=== PATIENT | female | born 1950 ===

== ENCOUNTER 2017-08-02 06:48 | Inpatient (IN) | payer OTHER, MEDICARE ==
[2017-08-02] MEDS ORDERED: ceFAZolin 2 GM in Premix Bag 1 BAG IV ONE (07:07)
[2017-08-02] MEDS ORDERED: fentaNYL 100 MCG/2 ML SDV ONE (07:29)
[2017-08-02] MEDS ORDERED: Propofol 200 MG/20 ML SDV ONE (07:29)
[2017-08-02] MEDS ORDERED: Midazolam 1 MG/ML 2 ML SDV ONE (07:29)
[2017-08-02] MEDS ORDERED: Lactated Ringers 1,000 ML IV SCH (07:30)
--- NOTE | 2017-08-02 07:58 | PCM.PREANE ---
Preanesthetic Assessment - Anesthesia/Transfusion/Family Hx Anesthesia History: No Prior Anesthesia Transfusion History: No Prior Transfusion(s) - Physical Assessment NPO Status Date: 08/01/17 NPO Status Time: 23:00 O2 Sat by Pulse Oximetry: 97 Respiratory Rate: 16 Vital Signs: Last Vital Signs Temp 98.2 F 08/02/17 07:38 Pulse 86 08/02/17 07:38 Resp 16 08/02/17 07:38 BP 166/77 H 08/02/17 07:38 Pulse Ox 97 08/02/17 07:38 Height: 5 ft 6 in Weight: 190 lb - Allergies Allergies/Adverse Reactions: Allergies Allergy/AdvReac Type Severity Reaction Status Date / Time No Known Allergies Allergy Verified 07/29/17 08:21 PreAnesthesia Questionnaire - Past Health History Medical/Surgical History: Denies Medical/Surgical History Cardiovascular History: Reports: Hypertension - Past Surgical History Head Surgeries/Procedures: Reports: None - SUBSTANCE USE Smoking Status *Q: Never Smoker Recreational Drug Use History: No - HOME MEDS Home Medications: Home Meds Acetaminophen [Tylenol] 2 tab PO ASDIRECTED PRN 07/29/17 [History] Hydrochlorothiazide 25 mg PO DAILY 07/29/17 [History] Losartan [Cozaar] 100 mg PO DAILY 07/29/17 [History] Lutein/Minerals/Vit A,C & E [Ocuvite] 1 tab PO DAILY 07/29/17 [History] Multivitamin [Multivitamins] 1 tab PO DAILY 07/29/17 [History] [place]-3/DHA/Epa/Fish Oil [[place] 3 500 Softgel] 1 tab PO DAILY 07/29/17 [History] - CURRENT (IN HOUSE) MEDS Current Meds: Current Medications Cefazolin Sodium/Dextrose 2 gm (/ Premix) 50 mls @ 50 mls/hr IV ONETIME ONE Stop: 08/02/17 08:06 Lactated Ringer's (Ringers, Lactated) 1,000 mls @ 125 mls/hr IV ASDIRECTED LOCO Last Admin: 08/02/17 07:25 Dose: 125 mls/hr Tranexamic Acid (Cyklokapron) 2,000 mg IV ONETIME ONE Stop: 08/02/17 08:01 Discontinued Medications Fentanyl (Sublimaze) Confirm Administered Dose 100 mcg .ROUTE .STK-MED ONE Stop: 08/02/17 07:30 Midazolam HCl (Versed 1 Mg/Ml) Confirm Administered Dose 2 mg .ROUTE .STK-MED ONE Stop: 08/02/17 07:30 Propofol (Diprivan 20 Ml) Confirm Administered Dose 800 mg .ROUTE .STK-MED ONE Stop: 08/02/17 07:30 Tranexamic Acid (Cyklokapron) Confirm Administered Dose 2,000 mg .ROUTE .STK- MED ONE Stop: 08/02/17 07:31
[2017-08-02] MEDS ORDERED: Phenylephrine 1% 10 MG/ML SDV ONE (09:01)
[2017-08-02] MEDS ORDERED: Ondansetron 4 MG/2 ML SDV ONE (09:44)
--- NOTE | 2017-08-02 09:58 | PCM.OPNOTE ---
- General Post-Op/Procedure Note Date of Surgery/Procedure: 08/02/17 Operative Procedure(s): left anterior total hip arthroplasty Findings: severe OA Pre Op Diagnosis: left hip osteoarthritis Post-Op Diagnosis: same Anesthesia Technique: General ET Tube, Spinal Primary Surgeon: Rajan Cuevas Mai Pathology: femoral head EBL in mLs: 400 Complications: none Condition: Good Free Text/Narrative:: Intake & Output 08/01/17 08/02/17 08/02/17 22:59 06:59 14:59 Output Total 300 Balance -300
[2017-08-02] MEDS ORDERED: Acetaminophen/HYDROcodone 325-5 MG Tab ONE (10:06)
[2017-08-02] MEDS ORDERED: Docusate Sodium 100 MG Cap PO PRN (10:06)
[2017-08-02] MEDS ORDERED: Ondansetron 4 MG/2 ML SDV IVPUSH PRN (10:06)
--- NOTE | 2017-08-02 10:32 | PCM.POSTAN ---
POST ANESTHESIA ASSESSMENT - MENTAL STATUS Mental Status: Alert, Oriented - RESPIRATORY Respiratory Status: Respiratory Rate WNL, Airway Patent, O2 Saturation Stable - CARDIOVASCULAR CV Status: Pulse Rate WNL, Blood Pressure Stable - GASTROINTESTINAL GI Status: No Symptoms - PAIN Pain Score: 0 (spinal effect still present) - POST OP HYDRATION Hydration Status: Adequate & Stable
[2017-08-02] MEDS: ceFAZolin 2 GM in Premix Bag 1 BAG IV SCH ×2 (11:04→17:15)
[2017-08-02] MEDS: Morphine 10 MG/ML Syringe IVPUSH PRN ×3 (11:28→16:55)
--- NOTE | 2017-08-02 13:59 | OR ---
SURGEON: Rajan Jarrell MD DATE OF PROCEDURE: 08/02/2017 PREOPERATIVE DIAGNOSIS: Left hip osteoarthritis. POSTOPERATIVE DIAGNOSIS: Left hip osteoarthritis. OPERATION PERFORMED: Left anterior total hip arthroplasty. ANESTHESIA: Spinal and general. ESTIMATED BLOOD LOSS: 400 mL. SPECIMENS: Femoral head. COMPLICATIONS: None. IMPLANTS: Prem Continuum trabecular metal shell with cluster holes, 54 mm outer diameter, one 6.5 x 30 mm length bone screw, Vivacit-E neutral liner, 36 mm inner diameter, M/L Taper press-fit hip stem, extended offset reduced neck length, size 12.5, Biolox delta ceramic femoral head 36 mm diameter, zero neck length. INDICATIONS: The patient is a 67-year-old female with severe hip osteoarthritis. She wished to undergo hip replacement. She understands the risks, benefits, alternatives, and complications of the procedure including, but not limited to infection, neurovascular injury, continued pain, DVT, PE, stroke, [place], , leg-length discrepancy, fracture, dislocation, and she wished to proceed. PROCEDURE IN DETAIL: The patient was seen in the preoperative area. Operative site was marked. The patient was transferred to the operating room, where spinal anesthetic was given. She was placed supine on the Rader table. Her legs were placed in leg bars with narrow perineal post. General anesthesia was induced. Endotracheal tube was placed. She received preop antibiotics with Ancef and also 2 g TXA. Left hip was prepped and draped in a sterile fashion using alcohol followed by ChloraPrep with Ioban covering. A formal time-out was taken, identifying the correct patient, procedure, and extremity. A 12 cm incision starting just lateral to the ASIS going obliquely down to the femur was made. Dissection was carried out down to subcutaneous tissues. Hemostasis was obtained. The fascia overlying the TFL was opened and the interval between the TFL and sartorius due to the abductors and rectus was opened. A deep Scotty tractor was placed. The vastus lateralis fascia was opened and the anterior vessels were coagulated. The capsule was held and tagged with 2 fiber wires and retractors were placed deep in the hip joint. There were severe arthritis and loss of synovitis. The neck was cut in saddle region 1 cm above the lesser trochanter and the head was removed. The patient had severe complete osteoarthritis with complete obliteration and osteophytes as well as severe synovitis. Anterior and posterior tractors were released. Superior capsule was opened up to the acetabulum. The inferior capsule was released and portions of the iliopsoas tendon were released due to the severe tightness. The labrum was removed as well as pulvinar and then sequential reaming from size 47 up to 53 was made. The head measured about 48 to 49 mm. This was under fluoroscopic control going slightly superior medially to get good press fit due to the erosion of the lateral acetabulum. This had excellent fit and then the continuum trabecular metal shell with cluster holes was impacted in 10 degrees of anteversion and 40 degrees of abduction. This had excellent press fit. Due to some overhang laterally once straight superior bone screw was placed after drilling which had excellent fit. The wound was irrigated, dried off, and the neutral liner was impacted. Leg was then externally rotated. The medial capsule was released. Femoral lift was placed. Leg was extended and adducted. Central canal finder was utilized after releasing the superior capsule obturator internus and piriformis and then sequential broaching from size 4 following the [place] version up to a size 12.5 was made. This trial reduced with extended offset reduced neck length with a zero head which showed equal leg length and offset compared to the opposite side. This was done with printed overlay technique with fluoro films. The hip was then dislocated. The final 12.5, extended offset, reduced neck length M/L Taper stem was impacted after removing the trial components and irrigated. It was once again trialed with a zero neck length in printed overlay technique, showed equal leg length and offset. The hip was then dislocated. The Reyes taper was dried off and the final Biolox delta ceramic femoral head 36 mm diameter, zero neck length was impacted. The hip reduced. Two tag sutures were tied together. Wound was thoroughly irrigated. The fascia was closed with #1 Vicryl, the fat layer with #1 Vicryl. Subcutaneous tissues with 2-0 Stratafix, and the skin was closed with running 4-0 Monocryl. Dermabond tape and Aquacel dressing were placed. The patient was extubated to the operative room and transferred to recovery room in condition. Sponge, and needle counts were correct at the end of the case. There were no complications. PLAN: The patient will be allowed weightbearing as tolerated with aspirin for DVT prophylaxis. WILFREDO CONROY /[id number]
[2017-08-02] MEDS: Lactated Ringers 1,000 ML IV SCH (14:17)
--- NOTE | 2017-08-02 14:54 | CR ---
EXAMINATION: Left hip HISTORY: Arthroplasty COMPARISON: None TECHNIQUE: 2 views FINDINGS/IMPRESSION: Operative control films demonstrate left hip hardware in good position and align ment.
[2017-08-02] MEDS: Acetaminophen/HYDROcodone 325-7.5 MG Tab PO PRN (19:59)
[2017-08-02] MEDS: Aspirin 325 MG Tab.EC PO SCH (20:00)
[2017-08-03] MEDS: Lactated Ringers 1,000 ML IV SCH (00:59)
[2017-08-03] MEDS: Acetaminophen/HYDROcodone 325-7.5 MG Tab PO PRN ×2 (02:31→09:32)
[2017-08-03] MEDS: ceFAZolin 2 GM in Premix Bag 1 BAG IV SCH (02:33)
[2017-08-03] MEDS ORDERED: Sodium Chloride 0.9% 10 ML Syringe FLUSH PRN (06:51)
[2017-08-03] MEDS ORDERED: Sodium Chloride 0.9% 2.5 ML Syringe FLUSH PRN (06:51)
--- NOTE | 2017-08-03 07:13 | PCM.SN ---
- Free Text/Narrative Note: S: Doing well. Has ambulated multiple times, independent to bathroom. pain controlled with oral meds. tolerating PO, no CP/SOB O: afebrile vital signs stable dressing clean/dry/intact. normal motor and sensation distal with palpable pedal pulse minimal swelling in thigh, none distal hgb 8.8 A/P: POD #1 left MYRNA with acute blood loss anemia - full weight bearing, PT - oral pain meds - aspirin for DVT prophylaxis, SCDs in hospital - likely to home today
--- NOTE | 2017-08-03 07:15 | PCM.DCSUM1 ---
Discharge Summary - Discharge Data Discharge Date: 08/03/17 Discharge Disposition: Home, Self-Care 01 Condition: Good - Patient Summary/Data Operative Procedure(s) Performed: left anterior total hip arthroplasty Consults: Consultations 08/02/17 10:05 Consult to Case Management [CONS] Routine PT Evaluation and Treatment [CONS] Routine Hospital Course: patient was admitted for planned hip replacement. She did well, but had acute blood loss anemia. discharge POD #1 to home on aspirin for DVT prophylaxis - Patient Instructions Diet: Usual Diet as Tolerated Activity: Apply Ice, Full Weight Bearing Driving: Do Not Drive Showering/Bathing: May Shower Wound/Incision Care: Do NOT Change Dressing Notify Provider of: Fever, Swelling and Redness, Drainage - Discharge Plan Home Medications: Home Meds Acetaminophen [Tylenol] 2 tab PO ASDIRECTED PRN 07/29/17 [History] Hydrochlorothiazide 25 mg PO DAILY 07/29/17 [History] Losartan [Cozaar] 100 mg PO DAILY 07/29/17 [History] Lutein/Minerals/Vit A,C & E [Ocuvite] 1 tab PO DAILY 07/29/17 [History] Multivitamin [Multivitamins] 1 tab PO DAILY 07/29/17 [History] [place]-3/DHA/Epa/Fish Oil [[place] 3 500 Softgel] 1 tab PO DAILY 07/29/17 [History] - Discharge Summary/Plan Comment DC Time >30 min.: No - Patient Data Vitals - Most Recent: Last Vital Signs Temp 37.1 C 08/03/17 04:00 Pulse 98 08/03/17 04:00 Resp 12 08/03/17 04:00 BP 104/57 L 08/03/17 04:00 Pulse Ox 93 L 08/03/17 04:00 Weight - Most Recent: 86.183 kg I&O - Last 24 hours: Intake & Output 08/02/17 08/03/17 08/03/17 22:59 06:59 14:59 Intake Total 390 1499 Output Total 1100 600 Balance -710 899 Lab Results - Last 24 hrs: Laboratory Results - last 24 hr 08/02/17 08/03/17 Range/Units 07:30 04:26 WBC 7.96 (4.0-11.0) K/uL RBC 3.04 L (4.30-5.90) M/uL Hgb 8.8 L (12.0-16.0) g/dL Hct 26.4 L (36.0-46.0) % MCV 86.8 (80.0-98.0) fL MCH 28.9 (27.0-32.0) pg MCHC 33.3 (31.0-37.0) g/dL RDW Std Deviation 50.1 (28.0-62.0) fl RDW Coeff of Efrem 16 H (11.0-15.0) % Plt Count 274 (150-400) K/uL MPV 8.60 (7.40-12.00) fL Nucleated RBC % 0.0 /100WBC Nucleated RBCs # 0 K/uL Blood Type O POSITIVE Antibody Screen POSITIVE Prewarmed Antibody Srcn NEGATIVE Antibody Identification Cancelled Cold Antibody Screen POSITIVE Med Orders - Current: Current Medications Hydrocodone Bitart/Acetaminophen ([place] 325-7.5 Mg) 1 - 2 tab PO Q4H PRN PRN Reason: Pain Last Admin: 08/03/17 02:31 Dose: 2 tab Aspirin (Ecotrin) 325 mg PO BID [facility] Last Admin: 08/02/17 20:00 Dose: 325 mg Docusate Sodium (Colace) 100 mg PO BID PRN PRN Reason: Constipation Hydrochlorothiazide (Hydrochlorothiazide) 25 mg PO DAILY [facility] Lactated Ringer's (Ringers, Lactated) 1,000 mls @ 125 mls/hr IV ASDIRECTED [facility] Last Admin: 08/02/17 07:25 Dose: 125 mls/hr Lactated Ringer's (Ringers, Lactated) 1,000 mls @ 100 mls/hr IV ASDIRECTED [facility] Last Admin: 08/03/17 00:59 Dose: 100 mls/hr Morphine Sulfate (Morphine) 1 - 5 mg IVPUSH Q2H PRN PRN Reason: Pain Last Admin: 08/02/17 16:55 Dose: 5 mg Ondansetron HCl (Zofran) 4 mg IVPUSH Q6H PRN PRN Reason: Nausea/Vomiting Sodium Chloride (Saline Flush) 10 ml FLUSH ASDIRECTED PRN PRN Reason: Keep Vein Open Sodium Chloride (Saline Flush) 2.5 ml FLUSH ASDIRECTED PRN PRN Reason: Keep Vein Open Discontinued Medications Hydrocodone Bitart/Acetaminophen ([place] 325-5 Mg) 1 - 2 tab .ROUTE .STK-MED ONE Stop: 08/02/17 10:07 Fentanyl (Sublimaze) Confirm Administered Dose 100 mcg .ROUTE .STK-MED ONE Stop: 08/02/17 07:30 Cefazolin Sodium/Dextrose 2 gm (/ Premix) 50 mls @ 50 mls/hr IV ONETIME ONE Stop: 08/02/17 08:06 Last Admin: 08/02/17 11:57 Dose: Not Given Cefazolin Sodium/Dextrose 2 gm (/ Premix) 50 mls @ 100 mls/hr IV Q8H LOCO Stop: 08/03/17 02:44 Last Admin: 08/03/17 02:33 Dose: 100 mls/hr Midazolam HCl (Versed 1 Mg/Ml) Confirm Administered Dose 2 mg .ROUTE .STK-MED ONE Stop: 08/02/17 07:30 Ondansetron HCl (Zofran) Confirm Administered Dose 4 mg .ROUTE .STK-MED ONE Stop: 08/02/17 09:45 Phenylephrine HCl ([place]-Synephrine) Confirm Administered Dose 10 mg .ROUTE .STK- MED ONE Stop: 08/02/17 09:02 Propofol (Diprivan 20 Ml) Confirm Administered Dose 800 mg .ROUTE .STK-MED ONE Stop: 08/02/17 07:30 Tranexamic Acid (Cyklokapron) 2,000 mg IV ONETIME ONE Stop: 08/02/17 08:01 Last Admin: 08/02/17 11:57 Dose: Not Given Tranexamic Acid (Cyklokapron) Confirm Administered Dose 2,000 mg .ROUTE .STK- MED ONE Stop: 08/02/17 07:31 *Q Meaningful Use (DIS) - VTE *Q VTE Criteria *Q: - Stroke *Q Stroke Criteria *Q: - AMI *Q AMI Criteria *Q:
[2017-08-03 08:45] VITALS: BP 101/56
[2017-08-03] MEDS: Aspirin 325 MG Tab.EC PO SCH (09:33)
[2017-08-04] MEDS ORDERED: Hydrochlorothiazide 25 MG Tab PO SCH (09:00)
== END 2017-08-03 11:00 | disposition home or self-care (01) | DRG 470 ==
LOC: MW.MS 06:48
PROVIDERS: ADMIT Orthopaedic Surgery; ATTEND Orthopaedic Surgery
PROC: 0SRB0JZ Replacement of Left Hip Joint with Synthetic Substitute, Open Approach (ICD-10-PCS; principal; 2017-08-02)
DX: M16.12 Unilateral primary osteoarthritis, left hip (principal); D62 Acute posthemorrhagic anemia; I10 Essential (primary) hypertension; Z79.899 Other long term (current) drug therapy
CPT/HCPCS: 01214; 36415; 76000; 76000-26; 85027; 86156; 86850; 86900; 86901; 88305; 88311; 97110-GP; 97161-GP; A9270-GY; C1713; C1776; J0690; J2250; J2270; J2370; J2405; J2704; J3010; J7120